=== PATIENT | female | born 1955 ===

== ENCOUNTER → 2018-01-29 | Outpatient (CLI) | payer OTHER ==
--- NOTE | 2018-01-30 11:18 | CODING QUERY NO DIAGNOSIS ---
Valid Physician Order Needed A valid physician order must be submitted in order to properly bill for the service(s) provided, including date of service(s), valid diagnosis, and physician signature. If these tests are done on a recurring basis the original physician order must be submitted in order to code and bill for the service(s) provided. Please fax us the original, signed physician order so that we may expedite billing to [phone] DOS 01/29/18 * Excision of left ankle mass (Attached tissue form missing physician's signature) Thank you Melanie Barrientos [facility] Information [employer]
== END | disposition home or self-care (01) ==
LOC: C.PATHSPEC 19:13
PROVIDERS: ATTEND Orthopaedic Surgery
DX: M67.472 Ganglion, left ankle and foot (principal)